=== PATIENT | male | born 1960 | race Caucasian/White ===

== ENCOUNTER → 2021-04-12 08:35 | Outpatient (CLI) | payer OTHER, SELFPAY ==
[2021-04-12 08:10] VITALS: BMI 31.5
[2021-04-12 12:51] LABS: T4 Free Direct 0.95 ng/dL (0.76-1.46); Thyroid Stim Hormone (TSH) 4.46 uIU/mL (0.358-3.74)
[2021-04-13 16:51] LABS: Thyroid Peroxidase AB < 8 IU/mL (0-34)
== END ==
PROVIDERS: Referring Provider Internal Medicine Endocrinology, Diabetes & Metabolism; Visit Provider Internal Medicine Endocrinology, Diabetes & Metabolism
DX: E04.1 Nontoxic single thyroid nodule (principal)
CPT/HCPCS: 36415; 84439; 84443; 86376

== ENCOUNTER 2021-10-30 07:41 | Outpatient (CLI) | payer OTHER, SELFPAY ==
--- NOTE | 2021-10-30 07:44 | US_ITS ---
INDICATION: Multinodular goiter, TI-RADS please EXAMINATION: US Thyroid (eg thyroid, parathyroid, parotid) TECHNIQUE: Crandall scale and color doppler imaging was performed of the thyroid gland. COMPARISON: None. FINDINGS: RIGHT THYROID LOBE: Measures 5.3 x 1.7 x 1.9 cm. Homogeneous echotexture with normal vascularity. There is a 7 mm well-circumscribed solid hypoechoic nodule in the right midpole. There is a 1.4 cm solid and cystic nodule in the inferior pole which is well-circumscribed. LEFT THYROID LOBE: Measures 4.7 x 0.6 x 0.6 cm. Homogeneous echotexture with normal vascularity. [There is a 7 mm mostly solid hypoechoic nodule in the superior pole. ISTHMUS: Measures 0.2 cm in length. No thyroid nodules are present. US/Thyroid IMPRESSION: Multinodular goiter: -1.4 cm TR 4 nodule in the right inferior pole is moderately suspicious. Recommend follow-up US in one year. -7 mm TR 4 nodule in the right midpole is moderately suspicious. Recommend follow-up US in one year. -7 mm TR 3 nodule in the left superior pole is mildly suspicious. Electronically Signed: Trey Alvares MD at 23:56 EST ,
== END 2021-10-30 23:59 | disposition home or self-care (01) ==
LOC: US 07:43
PROVIDERS: PCP Family Medicine; Referring Provider Internal Medicine Endocrinology, Diabetes & Metabolism; Visit Provider Internal Medicine Endocrinology, Diabetes & Metabolism
DX: E04.2 Nontoxic multinodular goiter (principal)
CPT/HCPCS: 76536